=== PATIENT | female | born 1960 | race Caucasian/White ===

== ENCOUNTER 2016-05-19 06:00 | Inpatient (IN) | payer OTHER ==
[2016-05-19] VITALS (9 sets, daily range): BP systolic 106–116; BP diastolic 67–80
[~2016-05-19 06:00] MED LIST: PERCOCET1 TA4 PO
--- NOTE | 2016-05-19 10:43 | OPERATIVE REPORT ---
DATE OF SURGERY: SURGEON: Wilfrido Crespo III, MD PREOPERATIVE DIAGNOSIS: 1. Chronic diverticulitis POSTOPERATIVE DIAGNOSIS: 1. Chronic diverticulitis PROCEDURE PERFORMED: 1. Laparoscopically-assisted sigmoid resection with end-to-end stapled anastomosis. ANESTHESIA: General endotracheal anesthesia. INDICATIONS: The patient is a 55-year-old female with chronic left lower quadrant abdominal pain with multiple episodes of diverticulitis, underwent a colonoscopy , noted to have edematous sigmoid and a stenotic area at approximately 60 cm from the anal verge, continues to be sore in the left lower quadrant despite of oral antibiotics. SURGICAL FINDINGS: The area of Molly ink injection corresponds to the area of firm induration, which was adherent to the ovary, the broad ligament and the left pelvic side wall. SURGICAL TECHNIQUE: The patient was brought to the operating room and placed in the dorsal supine position where she underwent general endotracheal anesthesia by the anesthesiology department. After proper anesthesia had taken effect, the patient was placed in low lithotomy position. Troy catheter placed. Her abdomen was prepped using Betadine and draped in a sterile fashion. An infraumbilical incision made, carried down through skin and subcutaneous tissue. A Veress needle was inserted through this site into the abdominal cavity and after ascertaining its appropriate position with suction irrigation, a pneumoperitoneum obtained using CO2 insufflation to approximately 14-15 mmHg pressure. Once this pressure was reached, the Veress needle was removed and replaced with a 10 mm trocar. The trocar removed leaving the sleeve behind, through which a laparoscopic video camera was introduced into the abdominal cavity. Under direct visualization, a 12 mm trocar was placed within the right lower quadrant, a separate 10 mm trocar was placed in the left mid abdomen and another 10 mm trocar was placed in the right mid abdomen. Each entered the abdominal cavity under direct visualization. The trocars were removed, leaving the sleeves behind, through which laparoscopic instrumentation was introduced into the abdominal cavity. The Thunderbeat was then used to mobilize the descending colon and proximal sigmoid colon along the white line of Toldt. Dissection continued down into the pelvis, we were able to take the adherent colon off the ovary, the broad ligament, and the pelvic sidewall. Dissection continued down into the pelvis where the distal portion of Molly ink injection was identified. A site was selected, joining the descending colon and sigmoid colon at the pelvic brim. This was identified. The mesocolon incised using the Thunderbeat. An Endo-DELICIA stapler was then introduced into the abdominal cavity and the colon divided. The mesocolon was then taken down on the back wall of the colon using the Thunderbeat all the way down into the pelvis just beyond our Molly ink tattooing. The colon was then divided using an Endo- DELICIA stapler. The specimen was set aside. The pelvis was irrigated with warm normal saline and antibiotic solution. The descending colon was grasped as was the specimen. The pneumoperitoneum released. The infraumbilical trocar was removed from the abdominal cavity. An infraumbilical incision made, carried down through skin and subcutaneous tissue down to the fascia. The fascia was divided using electrocautery. The peritoneal cavity was entered, being careful to avoid injury to the underlying abdominal contents. The specimen was brought out through the incision and sent to pathology. The descending colon was brought out through the surgical site. The staple line was inspected. The pursestring suture device was placed just below the staple line. Pursestring of 0 Maxon was placed. The staple line was transected using Metzenbaum scissors. The lumen of the colon was inspected and dilated. It was a very small lumen and only dilated up to 28 mm. A 28 mm EEA stapler was then selected. The anvil was placed within the colon, the pursestring suture tied and the anvil was placed back in the abdominal cavity. The fascia of our incision was then approximated using 0 Prolene. The wound was irrigated copiously with warm normal saline and the wound was packed with a moist gauze sponge and the pneumoperitoneum re-insufflated. At this point, Dr. Rick went below, dilated the rectum and placed a 28 mm EEA stapler in the patient's rectum, the spike was extruded and the anvil of the descending colon was then attached to the spike, clicked into position. The anvil closed. The stapling device was then approximated and the staple fired. Stapling device was retrieved from the rectum. The staple line was placed beneath a pool of warm normal saline. Initially there were bubbles. The irrigant in the pelvis was suctioned out and reestablished. Dr. Rick once again insufflated the rectum with the distal proximal colon occluded. On multiple occasions, we could not replicate the air leak in spite of seeing air coming across the staple line in the area in question. Hemostasis assured. The pelvis was irrigated once again, the irrigant suctioned out. The pneumoperitoneum released. All trocars removed from the abdominal cavity. All trocar sites approximated using 4-0 subdermal Polysorb. The infraumbilical incision was closed using running 4-0 subdermal Polysorb suture continuous. Steri-Strips and sterile pressure occlusive dressing were placed over the site. The patient was placed in abdominal binder, extubated and transferred to the recovery room in stable condition. There were no intraoperative or anesthetic complications.
[2016-05-20 03:12] VITALS: BP 105/56
[2016-05-20 06:31] VITALS: BP 112/68
[2016-05-20 10:37] VITALS: BP 110/73
[2016-05-20 14:45] VITALS: BP 120/80
[2016-05-20 19:30] VITALS: BP 131/86
[2016-05-20 23:35] VITALS: BP 141/94
[2016-05-21] VITALS (7 sets, daily range): BP systolic 105–132; BP diastolic 70–82
[2016-05-22 02:43] VITALS: BP 129/74
[2016-05-22 06:44] VITALS: BP 135/86
[2016-05-22 10:27] VITALS: BP 137/91
[2016-05-22 14:28] VITALS: BP 147/87
[2016-05-22 19:04] VITALS: BP 156/91
[2016-05-22 22:55] VITALS: BP 126/75
[2016-05-23 02:32] VITALS: BP 117/70
[2016-05-23 06:51] VITALS: BP 149/83
--- NOTE | 2016-05-23 07:41 | OPERATIVE REPORT ---
DATE OF SURGERY: 05/23/2016 SURGEON: Wilfrido Crespo III, MD ADDENDUM PRINTER SLOTTER FEEDER: Dr. Rick
--- NOTE | 2016-05-23 07:41 | OPERATIVE REPORT ---
DATE OF SURGERY: 05/23/2016 SURGEON: Wilfrido Crespo III, MD ADDENDUM APPEALS RN: Dr. Rick
[2016-05-23 10:38] VITALS: BP 130/85
[2016-05-23 15:50] VITALS: BP 133/88
[2016-05-23 18:34] VITALS: BP 126/82
[2016-05-23 22:10] VITALS: BP 133/87
[2016-05-24 02:42] VITALS: BP 148/90
[2016-05-24 07:16] VITALS: BP 137/90
[2016-05-24] MEDS ORDERED: HYCET1 ML PO (10:20)
[2016-05-24 10:21] VITALS: BP 143/91
--- NOTE | 2016-05-24 10:21 | Provider's Discharge Care Plan ---
Problem, Goal, Plan Problem List 1. S/P laparoscopic-assisted sigmoidectomy Goals: Improve disease control, Therapeutic intervention Instructions: Follow up as directed, Take meds as directed
--- NOTE | 2016-05-24 10:21 | Provider's Discharge Care Plan ---
Problem, Goal, Plan Problem List 1. S/P laparoscopic-assisted sigmoidectomy Goals: Improve disease control, Therapeutic intervention Instructions: Follow up as directed, Take meds as directed
--- NOTE | 2016-05-25 00:39 | DISCHARGE SUMMARY ---
ADMIT DATE: 05/19/2016 DISCHARGE DATE: 05/24/2016 ADMISSION DIAGNOSIS: 1. Chronic diverticulitis DISCHARGE DIAGNOSIS: 1. Chronic diverticulitis PROCEDURE: 1. Laparoscopically-assisted sigmoid resection with end-to-end stapled anastomosis BRIEF HISTORY: A 55-year-old female with chronic left lower quadrant abdominal pain with multiple episodes of diverticulitis underwent colonoscopy, noted to have an edematous sigmoid with a stenotic area at approximately 60 cm from the anal verge. The patient is scheduled for surgery. Findings: The patient was noted to have an area of thickened edematous sigmoid at surgery. Pathology revealed chronic diverticulitis. No evidence of malignancy. HOSPITAL COURSE: The patient was admitted to [facility], taken to the operating room and underwent uneventful laparoscopically-assisted sigmoid resection. The patient's postoperative course was unremarkable. Postoperative day number 2, she was passing flatus. She was afebrile with stable vital signs. Her Troy was discontinued postoperative day 3. Her white count was 5.9; hemoglobin and hematocrit of 11.0 and 33.8, respectively. On postoperative day number 4, she was passing flatus and having bowel movement. She was started on a clear liquid diet. The patient tolerated clear liquid diet with no abdominal pain or pelvic pain. Her vital signs remained stable. She was quite comfortable. She was discharged home on postoperative day number 5. Condition at time of discharge: Ambulating, voiding, passing flatus, having small bowel movements. No dysuria or hematuria. Blood pressure 137/90, pulse 77, respiratory rate 18, temperature 98.3. Her abdomen was soft. Her dressings were dry. She had positive bowel sounds. DISCHARGE INSTRUCTIONS/MEDICATIONS: She was discharged home on Hycet elixir 1 tablespoon q.6 hours p.r.n. pain. Follow up with [facility] within the week. She was instructed, should she develop any abdominal or pelvic pain, elevated temperature or fever, to return to the emergency room immediately.
[2016-08-22] MEDS ORDERED: CONTRAVE 8-90 M1 TAB PO (17:34)
[2016-08-22] MEDS ORDERED: STOOL SOFTENER100 M1 PO (17:34)
== END 2016-05-24 12:00 | disposition home or self-care (01) | DRG 330 ==
LOC: SCU SRH 06:00 → ACUTE3 SRH 11:39 → ACUTE2 SRH 05-21 17:14
PROVIDERS: ADMIT Specialist
PROC: 0DBN0ZZ Excision of Sigmoid Colon, Open Approach (ICD-10-PCS; principal; 2016-05-19 07:30)
PROC: 0D7 Gastrointestinal System, Dilation (ICD-10-PCS; principal; 2016-05-19 07:30)
DX: K57.32 Diverticulitis of large intestine without perforation or abscess without bleeding (principal); K56.69 Other intestinal obstruction
CPT/HCPCS: 50002; 60001; 70002; 80102; 80212; 80248; 82319; 82669; 82723; 82794; 82897; 83197; 83432; 83475; 83526; 83587; 83920; 83982; 84038; 84041; 84344; 90001; 90004; 90047; 90074; 90155; 90469; 91004; 95059; 98428